=== PATIENT | male | born 1990 | race Caucasian/White ===

== ENCOUNTER 2018-04-30 13:15 | Emergency (ER) | payer OTHER, SELFPAY ==
[2018-04-30 13:20] VITALS: BP 130/86; PULSE 87; RESP 18; TEMP 36.8; O2SAT 98
--- NOTE | 2018-04-30 13:30 | ED.GENADUL_ITS ---
Discharge Plan Disposition Patient Disposition: HOME Condition: Good Discharge Details Chief Complaint: Abd Prob Clinical Impression: Abdominal pain, Gastritis Primary Care Provider: Chen Correa ED Provider: Joey Shen Discharge Instructions Instructions: Gastritis (ED), Abdominal Pain (ED) Additional Instructions: if symptoms continue this week see your primary care provider return to the emergency department if you have severe worsening pain or persistent vomit Medical Decision Making Patient comes in with complaints of middle abdominal pain for about a week. Denies any vomit or fevers. He states it started last Saturday and on Saturday prior to this swallowed a wooden toothpick by accident. Has tenderenss without guarding to the mid abdomen. Will obtain imaging to evaluate for acute surgical pathology, and treat with gi cocktail for possible gastritis Differential Diagnosis pancreatitis, appendicitis, diverticulitis Imaging Data Radiologic Study: Attestation: I personally reviewed and interpreted this imaging study as follows: Imaging: CT Scan Radiologist's impression: no acute findings Lab Data Lab results reviewed: Yes I reviewed the patient's lab results. HPI General Mode of arrival: ambulatory . Date/Time Provider Initiated Documentation: 04/30/18 13:23 . Limitations to Documentation: no limitations . Information obtained by: patient . History of Present Illness 27 year old M presents to the emergency department with the chief complaint of abdominal pain, described as moderate, with intensity rated at 5. Quality is described as aching, and is localized to the abdomen. Patient reports no radiation. Patient started experiencing this week(s) (1) and it has been constant. No relieving factors improve symptom(s), No exacerbating factors reported . Patient notes no other symptoms.. Patient did receive the following treatments prior to arrival, none Related Data Allergies Allergy/AdvReac Type Severity Reaction Status Date / Time No Known Allergies Allergy Unverified 08/12/17 14:58 General Stated Complaint: Abd Prob PEARL: 3 Review of Systems Review of Systems All systems reviewed & are unremarkable except as noted in HPI and below Constitutional Denies chills, Denies fever(s) and Denies weakness Eyes Denies loss of vision ENT Denies change in voice Cardiovascular Denies chest pain and Denies dyspnea Respiratory Denies dyspnea Gastrointestinal Denies nausea and Denies vomiting Genitourinary Denies dysuria Musculoskeletal Denies joint swelling Integumentary/Breasts Denies rash Neurologic Denies loss of vision and Denies weakness Psychiatric Denies depression Endocrine Denies cold intolerance and Denies heat intolerance Allergic/Immunologic Denies urticaria PFSH Social History Smoking/Tobacco Use Status: Never Exam Const General: no acute distress Orientation: alert HENMT Head: normal to inspection Ears: external ears normal General nose exam: external nose normal Mouth: moist mucous membranes Eyes General: appearance normal, both eyes and all related structures Neck Neck: normal visual inspection Resp Effort & Inspection: normal respiratory effort and able to speak in complete sentences Cardio Rate: regular rate Skin General skin exam: no rashes or lesions noted Neuro General: alert and oriented x3 Extrem General: normal to inspection Psych Mental Status: mental status grossly normal Course Vital Signs Temperature 36.8 C 04/30/18 13:20 Pulse 87 04/30/18 13:20 Respiratory Rate 18 04/30/18 13:20 Blood Pressure 130/86 04/30/18 13:20 Pulse Oximetry 98 04/30/18 13:20 Temperature 36.8 C 04/30/18 13:20 Temperature Source Temporal Artery Scan 04/30/18 13:20 Pulse 87 04/30/18 13:20 Respiratory Rate 18 04/30/18 13:20 Respiratory Effort 04/30/18 13:22 Blood Pressure 130/86 04/30/18 13:20 Blood Pressure Position Sitting 04/30/18 13:20 Pulse Oximetry 98 04/30/18 13:20 Oxygen Delivery Method Room Air 04/30/18 13:20 Oxygen Flow Rate 0 04/30/18 13:20 Pain Level 7 04/30/18 13:20
[2018-04-30 13:53] LABS: Abs Immature Grans 0.01 k/cumm (0.0-0.09); Absolute Basophil Count 0.05 k/cumm (0.0-0.2); Absolute Eosinophil Count 0.11 k/cumm (0.0-0.7); Absolute Monocyte Count 0.67 k/cumm (0.11-0.7); Absolute Neutrophil Count 2.47 k/cumm (1.2-6.7); Eosinophils % 2.2; HGB 13.9 g/dL (13.5-17.5); Immature Grans % 0.2; Lymphocytes % 32.6; Mean Corp. HGB Concentration 34.8 g/dL (32.0-36.0); Mean Corpuscular Hemoglobin 30.5 pg (27.0-33.0); Mean Corpuscular Volume 87.9 fL (80-95); Mean Platelet Volume 9.1 fL (8.0-11.0); Monocytes % 13.6; Neutrophils % 50.4; Platelet Count 260 x1000/uL (130-400); RBC 4.55 m/cumm (4.50-6.00); White Blood Cell Count 4.91 k/cumm (4.4-10.8)
[2018-04-30 14:05] LABS: ALT 25 U/L (12-78); AST 19 U/L (15-37); Albumin 4.2 g/dL (3.4-5.0); Alkaline Phosphatase 67 U/L (46-116); Anion Gap 9.7 mmol/L (3-11); BUN 12 mg/dL (7-18); Bilirubin, Direct 0.18 mg/dL (0.00-0.20); CO2 28.3 mmol/L (21.0-32.0); CREATININE 0.91 mg/dL (0.70-1.30); Calcium 9.5 mg/dL (8.5-10.1); Chloride 100 mmol/L (98-107); Glucose 118 mg/dL (70-100); Lipase 117 U/L (73-393); Potassium 3.6 mmol/L (3.5-5.1); Sodium 138 mmol/L (136-145); Total Protein 7.9 g/dL (6.4-8.2)
[2018-04-30] MEDS: Omnipaque 350 MG/ML 100 ML BTL IJ (14:10)
--- NOTE | 2018-04-30 14:18 | DI.CT_ITS ---
SYMPTOMS/DIAGNOSIS: MID ABDOMEN PAIN AFTER SWALLOWING A TOOTHPICK CT OF THE ABDOMEN AND PELVIS: The study was carried out according to the usual protocol with intravenous administration of 69 cc's of Omnipaque 350. The lung bases are unremarkable. The heart is not enlarged. The liver, gallbladder, pancreas and spleen are intact. The kidneys are normal. The adrenals are normal. There is no evidence of bowel obstruction. Scattered fecal material is noted in the colon. There is no evidence of an acute appendix. No localized bowel wall abnormality is identified. There is no evidence of free air or free fluid in the intraperitoneal space. The bladder is normal. The reproductive organs as visualized are unremarkable. There is no evidence of an aortic aneurysm. No bony abnormality is seen. SUMMARY: No evidence of an acute abdomen.
[2018-04-30 15:22] VITALS: BP 127/83; PULSE 66; RESP 18; TEMP 37.4; O2SAT 100
== END 2018-04-30 15:23 | disposition home or self-care (01) ==
PROVIDERS: Emergency Provider Emergency Medicine; PCP Family Medicine
DX: R10.9 Unspecified abdominal pain (principal); K52.9 Noninfective gastroenteritis and colitis, unspecified
CPT/HCPCS: 36415; 80053; 80076; 83690; 99285; 74177; 85025; 99284; J3490

== ENCOUNTER 2019-01-29 14:11 | Emergency (ER) | payer OTHER, SELFPAY ==
[2019-01-29 14:13] VITALS: BP 141/84; PULSE 66; RESP 12; TEMP 37.4; O2SAT 99
--- NOTE | 2019-01-29 14:36 | ED.GENADUL_ITS ---
Discharge Plan Disposition Patient Disposition: HOME Condition: Stable Discharge Details Chief Complaint: Laceration Clinical Impression: Laceration of hand, left Primary Care Provider: Chen Correa ED Provider: Joey Shen Home Meds and New Rx's Prescriptions: No Action No Known Home Meds RF: 0 Discharge Instructions Instructions: Laceration (ED) Additional Instructions: return in 7 days to have the wound evaluated for suture removal if redness spreads away from the wound, you have severe pain or yellow/white discharge return to the emergency department sooner Medical Decision Making Pt comes in with laceration to the left posterior proximal ring finger. He was opening a box when the knife slipped causing a 0.5cm laceration, denies other injuries or falling. The wound is of the skin no bleeding on my exam, full rom and intact sensation so doubt neurovascular or tendon injury. I placed one suture to help close the wound and prevent bleeding .Return precautions given Differential Diagnosis laceration, abrasion HPI General Mode of arrival: ambulatory . Date/Time Provider Initiated Documentation: 01/29/19 14:29 . Limitations to Documentation: no limitations . Information obtained by: patient . History of Present Illness 28 year old M presents to the emergency department with the chief complaint of left ring finger laceration, and is localized to the left and upper extremity. Patient started experiencing this hour(s) (1) and it has been constant. No relieving factors improve symptom(s), No exacerbating factors reported . Patient did receive the following treatments prior to arrival, none Related Data Home Medications Medication Instructions Recorded Confirmed Unknown [No Known Home Meds] 01/29/19 01/29/19 Allergies Allergy/AdvReac Type Severity Reaction Status Date / Time No Known Allergies Allergy Unverified 01/29/19 14:17 General Stated Complaint: Laceration PEARL: 4 Review of Systems Review of Systems All systems reviewed & are unremarkable except as noted in HPI and below Constitutional Denies chills, Denies fever(s) and Denies weakness Cardiovascular Denies chest pain and Denies dyspnea Respiratory Denies cough and Denies dyspnea Gastrointestinal Denies abdominal pain, Denies nausea and Denies vomiting Integumentary/Breasts Denies rash Neurologic Denies weakness Endocrine Denies heat intolerance PFS Social History Smoking/Tobacco Use Status: Never Alcohol Intake: current Alcohol Intake frequency: a few times a month Drug use: Never Do you feel safe at home: Yes Do you feel safe in your relationship?: Yes Exam Const General: no acute distress Orientation: alert HENMT Head: normal to inspection Ears: external ears normal General nose exam: external nose normal Mouth: moist mucous membranes Eyes General: appearance normal, both eyes and all related structures Neck Neck: normal visual inspection Resp Effort & Inspection: normal respiratory effort and able to speak in complete sentences Cardio Rate: regular rate Skin General skin exam: no rashes or lesions noted Neuro General: alert and oriented x3 Extrem General: normal capillary refill Psych Mental Status: mental status grossly normal Course Vital Signs Temperature 37.4 C 01/29/19 14:13 Pulse 66 01/29/19 14:13 Respiratory Rate 12 01/29/19 14:13 Blood Pressure 141/84 H 01/29/19 14:13 Pulse Oximetry 99 01/29/19 14:13 Temperature 37.4 C 01/29/19 14:13 Temperature Source Skin 01/29/19 14:13 Pulse 66 01/29/19 14:13 Respiratory Rate 12 01/29/19 14:13 Respiratory Effort 01/29/19 14:17 Blood Pressure 141/84 H 01/29/19 14:13 Blood Pressure Position Sitting 01/29/19 14:13 Pulse Oximetry 99 01/29/19 14:13 Oxygen Delivery Method Room Air 01/29/19 14:13 Oxygen Flow Rate 0 01/29/19 14:13 Pain Level 0 01/29/19 14:23 Procedures Laceration Laceration 1: Site: hand Side (If applicable): left Size (cm): 0.5 Description: linear Depth: simple, single layer Pre-repair: wound explored and irrigated extensively Skin layer closed with: nylon Size (cm): 5-0 Number of sutures: 1 Technique: simple, interrupted
== END 2019-01-29 14:39 | disposition home or self-care (01) ==
PROVIDERS: Emergency Provider Emergency Medicine; PCP Family Medicine
DX: S61.412A Laceration without foreign body of left hand, initial encounter (principal); W26.0XXA Contact with knife, initial encounter
CPT/HCPCS: 12001

== ENCOUNTER 2019-02-05 17:36 | Emergency (ER) | payer SELFPAY ==
[2019-02-05 17:54] VITALS: BP 131/86; PULSE 50; RESP 16; TEMP 36.8; O2SAT 100
--- NOTE | 2019-02-05 17:57 | ED.GENADUL_ITS ---
Discharge Plan Disposition Patient Disposition: HOME Condition: Stable Discharge Details Chief Complaint: SutureRem Clinical Impression: Visit for suture removal Primary Care Provider: Chen Correa ED Provider: Michael Motley Home Meds and New Rx's Prescriptions: No Action No Known Home Meds RF: 0 Discharge Instructions Additional Instructions: You had an uneventful suture removal. Return for any acute concern Medical Decision Making 28-year-old male presents for evaluation of left ring finger healing laceration. Suture removed without difficulty. Patient stable for discharge to home. HPI General Mode of arrival: ambulatory . Date/Time Provider Initiated Documentation: 02/05/19 17:54 . Limitations to Documentation: no limitations . Information obtained by: patient . History of Present Illness 28 year old M presents to the emergency department with the chief complaint of Left ring finger suture removal, no complaint, healing well, Related Data Home Medications Medication Instructions Recorded Confirmed Unknown [No Known Home Meds] 01/29/19 01/29/19 Allergies Allergy/AdvReac Type Severity Reaction Status Date / Time No Known Allergies Allergy Unverified 01/29/19 14:17 General Stated Complaint: SutureRem PEARL: 5 PFSH Social History Smoking/Tobacco Use Status: Never Alcohol Intake: current Alcohol Intake frequency: a few times a month Drug use: Never Do you feel safe at home: Yes Do you feel safe in your relationship?: Yes Exam Narrative Exam Narrative: Awake alert and oriented x3 in no acute distress. The left ring finger has proximal dorsal surface single suture without surrounding erythema or discharge.
== END 2019-02-05 18:05 | disposition home or self-care (01) ==
LOC: ER 17:59
PROVIDERS: Emergency Provider Emergency Medicine; PCP Family Medicine
DX: S61.412D Laceration without foreign body of left hand, subsequent encounter (principal); W26.0XXD Contact with knife, subsequent encounter; Z48.02 Encounter for removal of sutures

== ENCOUNTER 2019-10-19 01:53 | Outpatient (CLI) | payer OTHER, SELFPAY ==
--- NOTE | 2019-10-19 | DI.CT_ITS ---
EXAM: CT HEAD WO CLINICAL HISTORY: NEW HEADACHE TECHNIQUE: COMPARISON: No exams were available for comparison FINDINGS: Noncontrast cranial CT was performed. There is minimal mucoperiosteal thickening in the ethmoid and sphenoid sinuses. Mastoid air cells are clear. Temporal bone structures appear intact. Orbital str uctures appear intact. Ventricular system is normal in appearance. No evidence of intracranial hemorrhage, mass effect, or midline shift. IMPRESSION: Negative cranial CT except for minimal presumably chronic sinus disease.
== END 2019-10-19 02:13 ==
PROVIDERS: PCP Family Medicine; Visit Provider Family Medicine
DX: R51 Headache (principal)
CPT/HCPCS: 70450

== ENCOUNTER 2020-05-03 15:58 | Outpatient (REF) | payer OTHER, SELFPAY ==
[2020-05-06 23:34] LABS: Patient Race White; SARS-CoV-2 RNA Undetected (Undetected); SARS-CoV-2 Specimen Source Nasal
== END 2020-05-03 16:18 ==
LOC: NCHCN 15:58
PROVIDERS: PCP Family Medicine; Visit Provider Nurse Practitioner Family
DX: Z20.828 Contact with and (suspected) exposure to other viral communicable diseases (principal)
CPT/HCPCS: U0003

== ENCOUNTER 2020-06-09 11:07 | Emergency (ER) | payer OTHER, SELFPAY ==
[2020-06-09 11:12] VITALS: BP 149/84; PULSE 65; RESP 18; TEMP 36.4; O2SAT 99
--- NOTE | 2020-06-09 11:15 | DI.RAD_ITS ---
EXAM: XR SOFT TISSUE NECK CLINICAL HISTORY: Foreign body sensation. TECHNIQUE: 2D digital imaging was performed. COMPARISON: No exams were available for comparison FINDINGS: AP and lateral soft tissue technique views of the neck reveal nonoccluded airway. No radiopaque fore ign body evident. Epiglottis is not swollen. No prevertebral soft tissue swelling. No osseous find ings of significance in the cervical spine. IMPRESSION: No significant findings on the soft tissue views. DATA REPOSITORY: RADIATION DOSE DELIVERED:
--- NOTE | 2020-06-09 11:21 | W.ED.GENAD ---
Discharge Plan Disposition Patient Disposition: HOME Condition: Stable Discharge Details Clinical Impression: Foreign body sensation in throat Primary Care Provider: Chen Correa ED Provider: Shayna Christine Home Meds and New Rx's Prescriptions: No Action No Known Home Meds RF: 0 Discharge Instructions Instructions: Foreign Body Ingestion (ED) Additional Instructions: At this time there is no visualized foreign body on x-ray. At this time it is safe for you to be discharged home since you can handle your secretions in are not actively vomiting. Consider taking a daily antacid such as Prevacid or Pepcid [id number]. Follow-up with general surgery for possible outpatient endoscopy. Return to the ED for any worsening or concerns. Follow up with primary care provider in 3-5 days. Return to ED sooner if any worsening or concerns. Increase oral fluids. Referrals: Chen Correa MD [Primary Care Provider] - Candice Rubio DO [OSTEOPATHIC DOCTOR] - Medical Decision Making 29-year-old male presents to the ED with foreign body sensation to his throat. He states that he was eating summer sausage on Saturday when he felt he got a piece stuck in his throat. He is not having any trouble breathing, he is handling his secretions well. He does state that he did vomit and spit up this morning but he states that he does that on a daily basis and is not new for him. He has no stridor he is speaking in full sentences. Patient was given 2 tablets of effervescent flurries which he was able to drink without any difficulty. No further vomiting or spit up noted. EXAM: XR SOFT TISSUE NECK CLINICAL HISTORY: Foreign body sensation. TECHNIQUE: 2D digital imaging was performed. COMPARISON: No exams were available for comparison FINDINGS: AP and lateral soft tissue technique views of the neck reveal nonoccluded airway. No radiopaque foreign body evident. Epiglottis is not swollen. No prevertebral soft tissue swelling. No osseous findings of significance in the cervical spine. IMPRESSION: No significant findings on the soft tissue views. Patient was given a GI cocktail, evaluation patient states that he does not feel any different. The foreign body sensation in his throat is somewhat better. He has continued to maintain his oral secretions without difficulty throughout stay. At this time is very unlikely that he has any occlusion. Instructed to follow-up with PCP, discussed taking an antacid such as Prevacid or Pepcid for GERD. Referral placed for outpatient general surgery follow-up for possible endoscopy. This text was generated using [employer] dictation system, please disregard any oddities of phrase or misspellings. HPI General Mode of arrival: ambulatory. Date/Time Provider Initiated Documentation: 06/09/20 11:15. Limitations to Documentation: no limitations. Information obtained by: patient. HPI Narrative: 29-year-old male presents to the ED with foreign body sensation to his throat. He states that he was eating summer sausage on Saturday when he felt he got a piece stuck in his throat. He is not having any trouble breathing, he is handling his secretions well. He does state that he did vomit and spit up this morning but he states that he does that on a daily basis and is not new for him. He has no stridor he is speaking in full sentences. Related Data Home Medications Medication Instructions Recorded Confirmed Unknown [No Known Home Meds] 06/09/20 06/09/20 Allergies Allergy/AdvReac Type Severity Reaction Status Date / Time No Known Allergies Allergy Unverified 06/09/20 11:15 General Stated Complaint: ThroatFB EPARL: 4 Review of Systems All systems reviewed & are unremarkable except as noted in HPI and below ENT Ears, Nose, Mouth, and Throat: Reports odynophagia Comments: Foreign body sensation Gastrointestinal Gastrointestinal: Reports odynophagia [facility], [facility] Medical History Right groin pain Social History Smoking/Tobacco Use Status: Never Smoking risk assessment performed?: Yes Alcohol Intake: current Alcohol Intake frequency: a few times a week Drug use: Never Substance use type: does not use Current gender identity: male Do you feel safe at home: Yes Do you feel safe in your relationship?: Yes Exam Narrative Exam Narrative: Constitutional: Alert and oriented x3. Appears stated age. Normal body habitus. Head: Normocephalic, no trauma. Eyes: Pupils PERRLA, Red reflex noted, EOM's intact. Eyelids symmetrical without lesions, discharge, or swelling. ENT: Bilateral TM's WNL, External ear normal to inspection, no mastoid TTP, swelling, or erythema, Nasal turbinates WNL, no nasal discharge. Normal dentition, Posterior pharynx WNL, no exudate. Chest: RRR, Normal S1, S2, distal pulses intact. Resp: Lungs clear to auscultation bilaterally, no wheezes, rales, or rhonchi. Musculoskeletal: Normal gait, 5/5 strength to all four extremities. Skin: No suspicious rashes or lesions. Capillary refill less than 2 sec. Neurologic: Cranial nerves II-XII intact. Alert and oriented x 3. DTR's intact. Hematologic/Lymphatic: No ecchymosis, no lymphadenopathy. Course Vital Signs Vital signs: Vital Signs Temperature 36.4 C L 06/09/20 11:12 Pulse 65 06/09/20 11:12 Respiratory Rate 18 06/09/20 11:12 Blood Pressure 149/84 H 06/09/20 11:12 Pulse Oximetry 99 06/09/20 11:12 Temperature 36.4 C L 06/09/20 11:12 Temperature Source Skin 06/09/20 11:12 Pulse 65 06/09/20 11:12 Respiratory Rate 18 06/09/20 11:12 Respiratory Effort Non-Labored 06/09/20 11:19 Respiratory Pattern Normal 06/09/20 11:19 Blood Pressure 149/84 H 06/09/20 11:12 Blood Pressure Position Sitting 06/09/20 11:12 Pulse Oximetry 99 06/09/20 11:12 Oxygen Delivery Method Room Air 06/09/20 11:12 Oxygen Flow Rate 0 06/09/20 11:12 Pain Level 7 06/09/20 11:12
[2020-06-09] MEDS: Potassium Bicarbonate/Cit AC 25 MEQ TABLET.EFF PO (11:45)
[2020-06-09 13:18] VITALS: BP 117/66; PULSE 55; RESP 20; TEMP 36.9; O2SAT 100
--- NOTE | 2020-06-09 13:30 | NUR.NOTE ---
Referral faxed to [facility]Nursing Note:
== END 2020-06-09 13:00 | disposition home or self-care (01) ==
PROVIDERS: Emergency Provider Registered Nurse Emergency; PCP Family Medicine
DX: R09.89 Other specified symptoms and signs involving the circulatory and respiratory systems (principal)
CPT/HCPCS: 99283; 70360

== ENCOUNTER 2020-07-06 03:02 | Outpatient (CLI) | payer OTHER, SELFPAY ==
--- NOTE | 2020-07-06 10:22 | DI.RAD_ITS ---
EXAM: RF BARIUM SWALLOW CLINICAL HISTORY: Foreign Body sensation in throat TECHNIQUE: 2D and realtime digital imaging was performed. CONTRAST MATERIAL: Oral barium Oral water soluble contrast was administered. COMPARISON: No exams were available for comparison FINDINGS: Utility Bill Collector film reveals no free air subjacent to the hemidiaphragms and clear lung bases. ESOPHAGRAM: This study is performed both standing and recumbent. Swallowing mechanism was grossly intact. No aspiration evident. No hypertense upper esophageal sphi ncter. There are no fixed lesions demonstrated in the esophagus and no hiatal hernia evident. No Sc hatzki ring. No tertiary waves. GE junction appears unremarkable. IMPRESSION: No obvious abnormality evident on this esophagram study. RADIATION DOSE DELIVERED: 15 second of fluoroscopy time
[2020-07-06] MEDS: Barium Sulfate 60% W/V 355 ML BTL PO (11:17)
[2020-07-06] MEDS: Simethicone/Sod Bicarb/Cit Ac, 4 gram PACKET 1 PACKET PO (11:17)
== END 2020-07-06 03:22 ==
PROVIDERS: PCP Family Medicine; Visit Provider Physical Therapy Assistant
DX: R09.89 Other specified symptoms and signs involving the circulatory and respiratory systems (principal)
CPT/HCPCS: 74221; J3490

== ENCOUNTER 2022-10-22 18:47 | Outpatient (REF) | payer BC, SELFPAY ==
[2022-10-24 10:20] LABS: Hepatitis C Ab w Rflx HCV PCR Negative (Negative)
[2022-10-24 10:22] LABS: HIV-1/2 Ag & Ab Screen Negative (Negative)
== END 2022-10-22 18:48 | disposition home or self-care (01) ==
LOC: NCHCN 18:47
PROVIDERS: PCP Family Medicine; Visit Provider Family Medicine
DX: Z00.00 Encounter for general adult medical examination without abnormal findings (principal); Z11.4 Encounter for screening for human immunodeficiency virus [HIV]; Z11.59 Encounter for screening for other viral diseases
CPT/HCPCS: 86803; 87389